=== PATIENT | female | born 1980 | race Caucasian/White ===

== ENCOUNTER 2023-05-29 18:00 | Emergency (ER) | payer MEDICAID ==
[~2023-05-29] VITALS: Ht 172.7 cm; Wt 77.3 kg
[2023-05-29] MEDS ORDERED: ondansetron 4mg rapidly disintigrating tab PO ONE (18:25)
[2023-05-29] MEDS ORDERED: LORazepam 0.5 MG tablet PO PRN (18:25)
[2023-05-29 19:07] LABS: MEAN PLATELET VOLUME 7.5 FL (7.4-10.4); WHITE BLOOD COUNT 6.6 X10'3 (4.5-11.0)
[2023-05-29 19:09] LABS: HEMATOCRIT 46.7 % (35.0-45.0); HEMOGLOBIN 15.6 g/dl (12.0-16.0); MEAN CORPUSCULAR HEMOGLOBIN 29.2 PG (27.0-31.0); MEAN CORPUSCULAR HGB CONC 33.3 g/dL (33.0-36.5); MEAN CORPUSCULAR VOLUME 87.8 FL (78-98); PLATELET COUNT 240 X10'3 (140-440); RED BLOOD COUNT 5.33 X10'6 (4.20-5.60); RED CELL DISTRIBUTION WIDTH 16.1 % (11.5-14.5)
[2023-05-29 19:17] LABS: URINE HCG NEGATIVE (NEG)
[2023-05-29 19:19] LABS: ALANINE AMINOTRANSFERASE 224 U/L (12-78); ALBUMIN/GLOBULIN RATIO 1.1 (1.1-1.5); ALKALINE PHOSPHATASE 202 IU/L (46-116); ANION GAP 16 (8-16); ASPARTATE AMINO TRANSFERASE 96 U/L (10-37); BILIRUBIN,TOTAL 0.7 MG/DL (0.1-1.0); BLOOD UREA NITROGEN 17 MG/DL (7-18); BUN/CREATININE RATIO 17.2 (10.0-20.0); CALCIUM 7.9 MG/DL (8.5-10.1); CHLORIDE 97 MMOL/L (99-107); CREATININE 0.99 MG/DL (0.40-0.90); GLUCOSE 145 MG/DL (70-104); POTASSIUM 3.5 MMOL/L (3.5-5.1); SODIUM 137 MMOL/L (135-145); TOTAL CARBON DIOXIDE 23.6 MMOL/L (24-32); TOTAL PROTEIN 7.6 G/DL (6.4-8.2); eCRCL 75 ML/MIN; eGFR 62 ML/MIN
[2023-05-29] MEDS ORDERED: normal saline 1000ml 1,000 ML IV ONE (19:20)
[2023-05-29 19:26] LABS: ETHANOL 377 MG/DL (<10)
[2023-05-29 19:32] LABS: SYPHILIS SCREENING TEST POC NEGATIVE (Negative)
[2023-05-29 19:33] LABS: URINE AMPHETAMINE SCREEN NEGATIVE (Neg); URINE BARBITUATE SCREEN NEGATIVE (Neg); URINE BENZODIAZEPINES SCREEN NEGATIVE (Neg); URINE CANNABINOID SCREEN NEGATIVE (Neg); URINE COCAINE SCREEN NEGATIVE (Neg); URINE METHADONE SCREEN NEGATIVE (Neg); URINE OPIATE SCREEN NEGATIVE (Neg); URINE PHENCYCLIDINE SCREEN NEGATIVE (Neg)
[2023-05-29] MEDS ORDERED: Potassium Cl inj 20 MEQ, magnesium sulf injection 2 GM, folic acid inj. 1 MG, thiamine ... IV ONE ×6 (19:45)
[2023-05-29] MEDS ORDERED: normal saline 1000ML IV soln IVB ONE (19:45)
[2023-05-29 19:56] LABS: TOTAL CELLS COUNTED 100
[2023-05-29 20:16] LABS: PLATELET ESTIMATE NORMAL
[2023-05-29] MEDS ORDERED: ondansetron/PF 4mg/2ml inj IV ONE ×2 (20:20→22:00)
[2023-05-29 20:28] LABS: ANISOCYTOSIS 1+; POIKILOCYTOSIS FEW
[2023-05-29 20:29] LABS: ELLIPTOCYTES 2+
[2023-05-29] MEDS ORDERED: folic acid 1mg/0.2ml inj IV ONE (20:30)
[2023-05-29] MEDS ORDERED: magnesium 2GM in 50ml NS 50 ML IV ONE (20:30)
[2023-05-29] MEDS ORDERED: thiamine 100mg/ml 2ml inj. IV ONE (20:30)
[2023-05-29] MEDS ORDERED: multivitamins, therapeutics tablet PO ONE (20:30)
[2023-05-29] MEDS ORDERED: potassium Cl 40MEQ/1/2NS 520ml 520 ML IV ONE (20:35)
[2023-05-29 21:29] VITALS: BP 107/73; PULSE 98; RESP 16; O2SAT 98
[2023-05-29] MEDS ORDERED: CHLO25CA10 PO (21:50)
[2023-05-29 22:26] LABS: BILIRUBIN,URINE NEGATIVE (Neg); CLARITY,URINE SLIGHTLY CLOUDY (Clear); COLOR,URINE STRAW (Yellow); GLUCOSE, URINE NEGATIVE (Neg); KETONES,URINE NEGATIVE (Neg); LEUKOCYTE ESTERASE ,URINE NEGATIVE (Neg); NITRITES, URINE NEGATIVE (Neg); OCCULT BLOOD,URINE TRACE-INTACT (Neg); PROTEIN,URINE NEGATIVE (Neg); UROBILINOGEN,URINE 0.2 E.U/dL (0.2-1.0)
[2023-05-29 22:31] LABS: UA COLLECTION TYPE OTHER
[2023-05-29 22:33] LABS: CELLULAR CAST 0-4 /LPF (NEGATIVE); HYALINE CASTS 0-3 /LPF (NEGATIVE); MUCUS STRANDS FEW /LPF (Neg); SQUAMOUS EPITHELIAL CELL,UR MODERATE /LPF (FEW)
[2023-05-29 22:35] LABS: BACTERIA,URINE 1+ /HPF (Neg); RBC,URINE NONE SEEN /HPF (0-2); WBC,URINE 0-4 /HPF (0-4)
[2023-05-29 22:51] VITALS: TEMP 97.8
[2023-05-30] MEDS ORDERED: ONDA8TAB13 PO (14:16)
[2023-06-01 15:35] LABS: CHLAMYDIA TRACHOMATIS, NAA Negative (Negative)
== END 2023-05-29 22:54 | disposition home or self-care (01) ==
LOC: ER 18:01
DX: F10.20 Alcohol dependence, uncomplicated (principal); R11.10 Vomiting, unspecified; G40.909 Epilepsy, unspecified, not intractable, without status epilepticus; Z72.89 Other problems related to lifestyle; Z79.899 Other long term (current) drug therapy; Y90.8 Blood alcohol level of 240 mg/100 ml or more
CPT/HCPCS: 36415; 80053; 80305; 80320; 81001; 81025; 85007; 85025; 87491; 87591; 96361; 96365; 96366; 96368; 96375; 99284; J2405; J3411; J3475; J3480; J3490; J7030; 96374

== ENCOUNTER 2023-12-12 17:14 | Emergency (ER) | payer MEDICAID ==
[~2023-12-12] VITALS: Ht 172.7 cm; Wt 80.5 kg
[~2023-12-12 17:14] MED LIST: CHLO25CA10 PO; ONDA8TAB13 PO
[2023-12-12 17:49] LABS: BASOPHILS # (AUTO) 0.1 X10'3 (0-0.2); BASOPHILS % (AUTO) 0.6 % (0-1); EOSINOPHILS % (AUTO) 0.1 % (0-6); HEMATOCRIT 35.1 % (35.0-45.0); HEMOGLOBIN 11.7 g/dl (12.0-16.0); LYMPHOCYTES % (AUTO) 36.9 % (21-51); MEAN CORPUSCULAR HGB CONC 33.3 g/dL (33.0-36.5); MEAN PLATELET VOLUME 7.5 FL (7.4-10.4); MONOCYTES # (AUTO) 0.5 X10'3 (0-0.9); MONOCYTES % (AUTO) 6.3 % (2-12); NEUTROPHILS # (AUTO) 4.5 X10'3 (1.8-7.7); NEUTROPHILS % (AUTO) 56.1 % (42-75); PLATELET COUNT 207 X10'3 (140-440); RED CELL DISTRIBUTION WIDTH 16.4 % (11.5-14.5)
[2023-12-12 18:04] LABS: ALANINE AMINOTRANSFERASE 43 U/L (12-78); ALBUMIN 4.1 G/DL (3.4-5.0); ALBUMIN/GLOBULIN RATIO 1.2 (1.1-1.5); ALKALINE PHOSPHATASE 56 IU/L (46-116); AMYLASE 54 U/L (25-115); ANION GAP 15 (8-16); ASPARTATE AMINO TRANSFERASE 19 U/L (10-37); BILIRUBIN,TOTAL 0.7 MG/DL (0.1-1.0); BLOOD UREA NITROGEN 7 MG/DL (7-18); BUN/CREATININE RATIO 7.4 (10.0-20.0); CALCIUM 8.4 MG/DL (8.5-10.1); CHLORIDE 102 MMOL/L (99-107); CREATININE 0.95 MG/DL (0.40-0.90); GLUCOSE 98 MG/DL (70-104); LIPASE 71 U/L (16-77); POTASSIUM 3.5 MMOL/L (3.5-5.1); SODIUM 139 MMOL/L (135-145); TOTAL CARBON DIOXIDE 21.6 MMOL/L (24-32); TOTAL PROTEIN 7.5 G/DL (6.4-8.2); eCRCL 77 ML/MIN; eGFR 64 ML/MIN
[2023-12-12 18:18] LABS: BILIRUBIN,URINE NEGATIVE (Neg); CLARITY,URINE CLOUDY (Clear); COLOR,URINE YELLOW (Yellow); GLUCOSE, URINE NEGATIVE (Neg); KETONES,URINE NEGATIVE (Neg); LEUKOCYTE ESTERASE ,URINE NEGATIVE (Neg); NITRITES, URINE NEGATIVE (Neg); OCCULT BLOOD,URINE SMALL (Neg); PROTEIN,URINE TRACE mg/dl (Neg); UROBILINOGEN,URINE 0.2 E.U/dL (0.2-1.0)
[2023-12-12 18:21] LABS: URINE HCG NEGATIVE (NEG)
[2023-12-12 18:27] LABS: UA COLLECTION TYPE VOIDED
[2023-12-12 18:29] LABS: MUCUS STRANDS MANY /LPF (Neg); SQUAMOUS EPITHELIAL CELL,UR MANY /LPF (FEW)
[2023-12-12 18:30] LABS: HYALINE CASTS 0-3 /LPF (NEGATIVE)
[2023-12-12 18:35] LABS: BACTERIA,URINE FEW /HPF (Neg)
[2023-12-12 18:36] LABS: TRANSITIONAL EPI CELLS,URINE FEW /HPF; WBC,URINE 30-50 /HPF (0-4)
[2023-12-12] MEDS ORDERED: CEFD300C3 PO (22:00)
[2023-12-12] MEDS ORDERED: ONDA4TAB12 PO (22:00)
[2023-12-12] MEDS: ondansetron 4mg rapidly disintigrating tab PO ONE (22:12)
[2023-12-12] MEDS: CefTRIAXone 1000mg IM Kit (w/lidocaine diluent) IM ONE (22:17)
[2023-12-12 22:31] VITALS: BP 141/95; PULSE 85; RESP 18; TEMP 97.9; O2SAT 100
== END 2023-12-12 22:33 | disposition home or self-care (01) ==
LOC: ER 17:14
DX: N39.0 Urinary tract infection, site not specified (principal); Z79.899 Other long term (current) drug therapy
CPT/HCPCS: 36415; 80053; 81001; 81025; 82150; 83690; 85025; 96372; 99283; J0696

== ENCOUNTER 2024-01-31 23:21 | Emergency (ER) | payer MEDICAID, OTHER ==
[~2024-01-31] VITALS: Ht 175.3 cm; Wt 77.3 kg
[~2024-01-31 23:21] MED LIST changes: +ONDA-243 PO; +ONDA-245 PO; -ONDA8TAB13 PO
[2024-02-01 00:38] VITALS: BP 169/99; PULSE 90; TEMP 98; O2SAT 98
[2024-02-01 01:05] VITALS: RESP 18
[2024-02-01] MEDS: ketorolac trometh 30MG/ML vial 30 MG/ML VIAL IM ONE (01:05)
[2024-02-01] MEDS: acetaminophen 325mg tablet PO ONE (01:05)
[2024-02-01] MEDS ORDERED: CYCL-1 PO (01:08)
[2024-02-01] MEDS ORDERED: HYDR-3965 PO (01:13)
== END 2024-02-01 01:22 | disposition home or self-care (01) ==
LOC: ER 23:22
DX: M43.6 Torticollis (principal); M54.2 Cervicalgia; Z79.899 Other long term (current) drug therapy
CPT/HCPCS: 20552; 96372; 99284; J1885

== ENCOUNTER 2024-04-01 16:16 | Emergency (ER) | payer MEDICAID ==
[~2024-04-01 16:16] MED LIST changes: +CYCL-1 PO
== END 2024-04-01 18:02 | disposition left against medical advice (07) ==
LOC: ER 16:16
DX: R10.9 Unspecified abdominal pain (principal); Z53.21 Procedure and treatment not carried out due to patient leaving prior to being seen by health care provider

== ENCOUNTER 2024-04-02 16:58 | Emergency (ER) | payer MEDICAID ==
[~2024-04-02] VITALS: Ht 175.3 cm; Wt 79.0 kg
[2024-04-02] MEDS: ondansetron/PF 4mg/2ml inj IV ONE ×2 (18:53→21:59)
[2024-04-02] MEDS: morphine 4 MG/ML inj SYRINge IV ONE (18:53)
[2024-04-02 19:05] LABS: BASOPHILS # (AUTO) 0.1 X10'3 (0-0.2); BASOPHILS % (AUTO) 0.9 % (0-1); EOSINOPHILS % (AUTO) 0.3 % (0-6); HEMATOCRIT 38.5 % (35.0-45.0); HEMOGLOBIN 13.1 g/dl (12.0-16.0); LYMPHOCYTES # (AUTO) 5.2 X10'3 (1.1-4.8); LYMPHOCYTES % (AUTO) 42.9 % (21-51); MEAN CORPUSCULAR HEMOGLOBIN 30.8 PG (27.0-31.0); MEAN CORPUSCULAR HGB CONC 34.1 g/dL (33.0-36.5); MEAN CORPUSCULAR VOLUME 90.3 FL (78-98); MEAN PLATELET VOLUME 7.8 FL (7.4-10.4); MONOCYTES # (AUTO) 0.5 X10'3 (0-0.9); MONOCYTES % (AUTO) 4.2 % (2-12); NEUTROPHILS # (AUTO) 6.3 X10'3 (1.8-7.7); NEUTROPHILS % (AUTO) 51.7 % (42-75); PLATELET COUNT 239 X10'3 (140-440); RED BLOOD COUNT 4.26 X10'6 (4.20-5.60); WHITE BLOOD COUNT 12.2 X10'3 (4.5-11.0)
[2024-04-02 19:06] LABS: URINE HCG NEGATIVE (NEG)
[2024-04-02 19:14] LABS: BILIRUBIN,URINE NEGATIVE (Neg); CLARITY,URINE SLIGHTLY CLOUDY (Clear); COLOR,URINE STRAW (Yellow); GLUCOSE, URINE NEGATIVE (Neg); KETONES,URINE NEGATIVE (Neg); LEUKOCYTE ESTERASE ,URINE SMALL (Neg); NITRITES, URINE NEGATIVE (Neg); OCCULT BLOOD,URINE TRACE-INTACT (Neg); PROTEIN,URINE NEGATIVE (Neg); UROBILINOGEN,URINE 0.2 E.U/dL (0.2-1.0)
[2024-04-02 19:16] LABS: UA COLLECTION TYPE CLN CATCH MIDSTREAM
[2024-04-02 19:19] LABS: ALANINE AMINOTRANSFERASE 36 U/L (12-78); ALBUMIN 4.2 G/DL (3.4-5.0); ALBUMIN/GLOBULIN RATIO 1.3 (1.1-1.5); ALKALINE PHOSPHATASE 56 IU/L (46-116); ANION GAP 10 (8-16); ASPARTATE AMINO TRANSFERASE 28 U/L (10-37); BILIRUBIN,TOTAL 0.3 MG/DL (0.1-1.0); BLOOD UREA NITROGEN 6 MG/DL (7-18); BUN/CREATININE RATIO 7.8 (10.0-20.0); CALCIUM 8.2 MG/DL (8.5-10.1); CHLORIDE 99 MMOL/L (99-107); CREATININE 0.77 MG/DL (0.40-0.90); GLUCOSE 123 MG/DL (70-104); LIPASE 73 U/L (16-77); POTASSIUM 3.2 MMOL/L (3.5-5.1); SODIUM 134 MMOL/L (135-145); TOTAL CARBON DIOXIDE 25.3 MMOL/L (24-32); TOTAL PROTEIN 7.5 G/DL (6.4-8.2); eCRCL 98 ML/MIN; eGFR 82 ML/MIN
[2024-04-02 19:37] LABS: BACTERIA,URINE 2+ /HPF (Neg); RBC,URINE 20-50 /HPF (0-2); SQUAMOUS EPITHELIAL CELL,UR FEW /LPF (FEW)
[2024-04-02 19:38] LABS: MUCUS STRANDS NONE SEEN /LPF (Neg); RENAL CELLS, URINE MODERATE /HPF
[2024-04-02] MEDS: ketorolac trometh 15mg/ml vial 15 MG/ML ML IV ONE (21:59)
[2024-04-02] MEDS: diphenhydrAMINE 50 mg/ml inj IV ONE (21:59)
[2024-04-02] MEDS: azithromycin 250mg tablet PO ONE (22:41)
[2024-04-02] MEDS: CefTRIAXone/D5W-Rocephin 1gm 50 ML IV ONE (22:41)
[2024-04-02 22:48] VITALS: BP 122/74; PULSE 78; RESP 14; TEMP 98.7; O2SAT 99
== END 2024-04-02 22:55 | disposition home or self-care (01) ==
LOC: ER 16:59
DX: R10.2 Pelvic and perineal pain (principal); Z88.6 Allergy status to analgesic agent; Z79.899 Other long term (current) drug therapy
CPT/HCPCS: 36415; 76856; 80053; 81001; 81025; 83690; 85025; 87088; 93976; 96374; 96375; 96376; 99285; J0696; J1200; J1885; J2270; J2405; 87186

== ENCOUNTER 2024-05-03 16:23 | Emergency (ER) | payer MEDICAID ==
[~2024-05-03] VITALS: Ht 172.7 cm; Wt 72.4 kg
[2024-05-03 17:53] LABS: EOSINOPHILS % (AUTO) 1.9 % (0-6); HEMOGLOBIN 10.5 g/dl (12.0-16.0); LYMPHOCYTES # (AUTO) 0.7 X10'3 (1.1-4.8); MEAN PLATELET VOLUME 8.9 FL (7.4-10.4); WHITE BLOOD COUNT 2.6 X10'3 (4.5-11.0)
[2024-05-03 17:55] LABS: BASOPHILS % (AUTO) 1.5 % (0-1); HEMATOCRIT 32.2 % (35.0-45.0); LYMPHOCYTES % (AUTO) 26.7 % (21-51); MEAN CORPUSCULAR HEMOGLOBIN 32.1 PG (27.0-31.0); MEAN CORPUSCULAR HGB CONC 32.7 g/dL (33.0-36.5); MEAN CORPUSCULAR VOLUME 98.4 FL (78-98); MONOCYTES # (AUTO) 0.2 X10'3 (0-0.9); MONOCYTES % (AUTO) 9.5 % (2-12); NEUTROPHILS # (AUTO) 1.6 X10'3 (1.8-7.7); NEUTROPHILS % (AUTO) 60.4 % (42-75); PLATELET COUNT 152 X10'3 (140-440); RED BLOOD COUNT 3.28 X10'6 (4.20-5.60)
[2024-05-03 17:59] LABS: ALANINE AMINOTRANSFERASE 237 U/L (12-78); ALBUMIN 3.7 G/DL (3.4-5.0); ALBUMIN/GLOBULIN RATIO 1.2 (1.1-1.5); ALKALINE PHOSPHATASE 290 IU/L (46-116); ANION GAP 12 (8-16); ASPARTATE AMINO TRANSFERASE 293 U/L (10-37); BILIRUBIN,TOTAL 2.8 MG/DL (0.1-1.0); BLOOD UREA NITROGEN 8 MG/DL (7-18); BUN/CREATININE RATIO 7.8 (10.0-20.0); CALCIUM 8.9 MG/DL (8.5-10.1); CHLORIDE 100 MMOL/L (99-107); CREATININE 1.02 MG/DL (0.40-0.90); GLUCOSE 98 MG/DL (70-104); LIPASE 118 U/L (16-77); POTASSIUM 3.6 MMOL/L (3.5-5.1); SODIUM 138 MMOL/L (135-145); TOTAL CARBON DIOXIDE 25.8 MMOL/L (24-32); TOTAL PROTEIN 6.9 G/DL (6.4-8.2); eCRCL 72 ML/MIN; eGFR 59 ML/MIN
[2024-05-03 18:27] LABS: URINE HCG NEGATIVE (NEG)
[2024-05-03 18:35] LABS: BILIRUBIN,URINE NEGATIVE (Neg); CLARITY,URINE CLEAR (Clear); COLOR,URINE YELLOW (Yellow); GLUCOSE, URINE NEGATIVE (Neg); KETONES,URINE NEGATIVE (Neg); LEUKOCYTE ESTERASE ,URINE NEGATIVE (Neg); NITRITES, URINE NEGATIVE (Neg); OCCULT BLOOD,URINE NEGATIVE (Neg); PROTEIN,URINE NEGATIVE (Neg); UROBILINOGEN,URINE 0.2 E.U/dL (0.2-1.0)
[2024-05-03 18:43] LABS: UA COLLECTION TYPE CLN CATCH MIDSTREAM
[2024-05-03 19:26] LABS: NUCLEATED RED BLOOD CELLS 2 /100WBC (0-0); TOTAL CELLS COUNTED 100
[2024-05-03 19:27] LABS: ANISOCYTOSIS 2+; LARGE PLATELETS FEW; PLATELET ESTIMATE NORMAL; STOMATOCYTES 2+
[2024-05-03] MEDS: HYDROcodone/acetaminophen 10/325mg tab PO ONE (23:06)
[2024-05-03] MEDS: dicyclomine 10 MG capsule PO ONE (23:06)
[2024-05-03] MEDS: diphenhydrAMINE 50 mg/ml inj IV ONE (23:07)
[2024-05-03] MEDS: metoclopramide 5 mg/ml inj IV ONE (23:07)
[2024-05-03] MEDS: normal saline 1000ml 1,000 ML IV ONE (23:08)
[2024-05-03] MEDS ORDERED: CHLO25CA10 PO (23:48)
[2024-05-03] MEDS: chlordiazePOXIDE 25mg capsule PO ONE (23:56)
[2024-05-04 00:13] VITALS: BP 130/88; PULSE 87; RESP 16; TEMP 97.9; O2SAT 99
== END 2024-05-04 00:17 | disposition home or self-care (01) ==
LOC: ER 16:23
DX: D64.9 Anemia, unspecified (principal); F10.20 Alcohol dependence, uncomplicated; K76.0 Fatty (change of) liver, not elsewhere classified; Z88.6 Allergy status to analgesic agent; Z79.899 Other long term (current) drug therapy; Y90.9 Presence of alcohol in blood, level not specified
CPT/HCPCS: 36415; 74176; 80053; 81003; 81025; 83690; 85007; 85025; 96361; 96374; 96375; 99285; J1200; J2765; J7030

== ENCOUNTER 2024-07-14 17:52 | Emergency (ER) | payer MEDICAID ==
[~2024-07-14] VITALS: Ht 162.6 cm; Wt 66.0 kg
[2024-07-14] MEDS ORDERED: ESCI10TA PO (18:36)
[2024-07-14 19:12] LABS: BILIRUBIN,URINE NEGATIVE (Neg); CLARITY,URINE CLEAR (Clear); COLOR,URINE YELLOW (Yellow); GLUCOSE, URINE NEGATIVE (Neg); KETONES,URINE NEGATIVE (Neg); LEUKOCYTE ESTERASE ,URINE NEGATIVE (Neg); NITRITES, URINE NEGATIVE (Neg); OCCULT BLOOD,URINE SMALL (Neg); PH,URINE 7.5 (4.8-8.0); PROTEIN,URINE NEGATIVE (Neg); UROBILINOGEN,URINE 0.2 E.U/dL (0.2-1.0)
[2024-07-14 19:15] LABS: BASOPHILS # (AUTO) 0.1 X10'3 (0-0.2); EOSINOPHILS # (AUTO) 0.1 X10'3 (0-0.9); MEAN CORPUSCULAR HGB CONC 33.8 g/dL (33.0-36.5); MONOCYTES # (AUTO) 0.4 X10'3 (0-0.9); NEUTROPHILS # (AUTO) 2.3 X10'3 (1.8-7.7); PLATELET COUNT 221 X10'3 (140-440)
[2024-07-14 19:16] LABS: BASOPHILS % (AUTO) 1.5 % (0-1); HEMATOCRIT 38.5 % (35.0-45.0); LYMPHOCYTES # (AUTO) 4.2 X10'3 (1.1-4.8); LYMPHOCYTES % (AUTO) 59.4 % (21-51); MEAN CORPUSCULAR VOLUME 91.7 FL (78-98); MEAN PLATELET VOLUME 7.6 FL (7.4-10.4); MONOCYTES % (AUTO) 5.8 % (2-12); NEUTROPHILS % (AUTO) 32.3 % (42-75); RED CELL DISTRIBUTION WIDTH 13.6 % (11.5-14.5); WHITE BLOOD COUNT 7.1 X10'3 (4.5-11.0)
[2024-07-14 19:20] LABS: UA COLLECTION TYPE CLN CATCH MIDSTREAM
[2024-07-14 19:22] LABS: BACTERIA,URINE FEW /HPF (Neg); SQUAMOUS EPITHELIAL CELL,UR FEW /LPF (FEW); WBC,URINE 0-4 /HPF (0-4)
[2024-07-14 19:23] LABS: URINE AMPHETAMINE SCREEN NEGATIVE (Neg); URINE BARBITUATE SCREEN NEGATIVE (Neg); URINE BENZODIAZEPINES SCREEN NEGATIVE (Neg); URINE CANNABINOID SCREEN NEGATIVE (Neg); URINE COCAINE SCREEN NEGATIVE (Neg); URINE METHADONE SCREEN NEGATIVE (Neg); URINE OPIATE SCREEN NEGATIVE (Neg); URINE PHENCYCLIDINE SCREEN NEGATIVE (Neg)
[2024-07-14 19:32] LABS: ALBUMIN 3.8 G/DL (3.4-5.0); ANION GAP 10 (8-16); BLOOD UREA NITROGEN 6 MG/DL (7-18); CALCIUM 8.2 MG/DL (8.5-10.1); CHLORIDE 105 MMOL/L (99-107); CREATININE 0.75 MG/DL (0.40-0.90); GLUCOSE 108 MG/DL (70-104); POTASSIUM 3.4 MMOL/L (3.5-5.1); SALICYLATE 0.9 MG/DL (4.0-20.0); SODIUM 144 MMOL/L (135-145); eCRCL 84 ML/MIN; eGFR 84 ML/MIN
[2024-07-14 19:34] LABS: TOTAL CELLS COUNTED 100
[2024-07-14 19:35] LABS: ETHANOL 337 MG/DL (<10)
[2024-07-14 19:36] LABS: PLATELET ESTIMATE NORMAL
[2024-07-14 19:37] LABS: ACETAMINOPHEN < 2.0 UG/ML (10-30)
[2024-07-14 20:53] LABS: ALANINE AMINOTRANSFERASE 25 U/L (12-78); ALBUMIN/GLOBULIN RATIO 1.2 (1.1-1.5); ALKALINE PHOSPHATASE 66 IU/L (46-116); ASPARTATE AMINO TRANSFERASE 19 U/L (10-37); BILIRUBIN,DIRECT 0.1 MG/DL (0-0.3); BILIRUBIN,TOTAL 0.3 MG/DL (0.1-1.0)
[2024-07-14] MEDS: LORazepam 2 mg/ml vial IV ONE (20:53)
[2024-07-14] MEDS: normal saline 1000ML IV soln IVB ONE (20:54)
[2024-07-15 03:42] LABS: BETA HCG,QUANTITATIVE < 1.0 mIU/ml
[2024-07-15] MEDS: ondansetron 4mg rapidly disintigrating tab PO ONE ×2 (07:28→08:55)
[2024-07-15] MEDS: acetaminophen 325mg tablet PO ONE (07:29)
[2024-07-15] MEDS: ESCITALOPRAM 10 mg tablet 10 MG TABLET PO SCH (08:00)
[2024-07-15 08:39] VITALS: BP 120/83; PULSE 85; RESP 16; TEMP 97.8; O2SAT 99
== END 2024-07-15 08:55 | disposition home or self-care (01) ==
LOC: ER 17:53 → EEVIPCON 17:53 → ER 07-15 08:55
DX: F10.129 Alcohol abuse with intoxication, unspecified (principal); Z88.8 Allergy status to other drugs, medicaments and biological substances; Z20.822 Contact with and (suspected) exposure to COVID-19; Y90.9 Presence of alcohol in blood, level not specified
CPT/HCPCS: 36415; 80048; 80076; 80305; 80320; 80329; 81001; 84702; 85007; 85025; 87811; 96361; 96374; 99284; J2060; J7030